=== PATIENT | female | born 1975 | race Caucasian/White ===

== ENCOUNTER 2021-11-15 15:05 | Emergency (ER) | payer OTHER ==
[~2021-11-15] VITALS: Ht 165.1 cm; Wt 95.3 kg
[2021-11-15] MEDS ORDERED: ACID REDUCER20 M1 (15:21)
[2021-11-15] MEDS ORDERED: PEPCID AC10 MG (15:21)
[2021-11-15] MEDS ORDERED: ZOFRAN8 MG (15:21)
== END 2021-11-15 17:36 | disposition home or self-care (01) ==
LOC: ER 15:05
DX: R11.2 Nausea with vomiting, unspecified (principal); R10.13 Epigastric pain; E86.0 Dehydration